=== PATIENT | female | born 1940 | race Caucasian/White ===

== ENCOUNTER 2016-11-16 17:11 | Inpatient (IN) | payer MEDICARE, OTHER ==
[~2016-11-16 17:11] MED LIST: ALLOPURINOL300 MG PO; ASPIR 8181 MG PO; ATENOLOL50 MG PO; CLARITIN-D 241 EAC1 PO; D3 DOTS2000 UNIT PO; LACRI-LUBE S.O3.5 G1 OP; LUTEIN20 M1 PO; MAGOX 400400 MG PO; MAXZIDE1 TA2 PO; MEDROL4 MG/DOSE- PO; MULTI VITAMIN1 EACH PO; NORVASC5 MG PO; VALTREX1000 MG PO; [UNRECOGNIZED DRUG - OTHER] PO
[2016-11-16] MEDS ORDERED: GLUCOSAMINE CH1 EAC8 PO (17:20)
[2016-11-16] MEDS ORDERED: AUSTRALIAN DREAM TOP (17:20)
[2016-11-16] MEDS ORDERED: NORCO 5-325 TA1 EACH PO (17:21)
[2016-11-16] MEDS ORDERED: COLACE100 M1 PO (17:21)
[2016-11-16] MEDS ORDERED: ASPIRIN EC81 MG PO (17:22)
[2016-11-16] MEDS ORDERED: ZYLOPRIM300 M1 PO (17:22)
[2016-11-16] MEDS ORDERED: LUTEIN20 M2 PO (17:23)
[2016-11-16] MEDS ORDERED: BIOTIN5 M3 PO (17:23)
[2016-11-16] MEDS ORDERED: MULTIVITAMINS1 EAC6 PO (17:23)
[2016-11-16] MEDS ORDERED: NORVASC5 M2 PO (17:24)
[2016-11-16] MEDS ORDERED: MAGNESIUM OXID400 M1 PO (17:24)
[2016-11-16] MEDS ORDERED: MAXZIDE 37.5 M1 EAC1 PO (17:24)
[2016-11-16] MEDS ORDERED: CLARITIN10 M6 PO (17:24)
[2016-11-16] MEDS ORDERED: TENORMIN50 M1 PO (17:24)
[2016-11-16] MEDS ORDERED: VITAMIN D35000 UNI3 PO (17:26)
[2016-11-16] MEDS ORDERED: MACROBID 100 M100 M1 PO (17:33)
[2016-11-16 18:06] LABS: BASO % 0.1 % (0-2); EOS % 1.2 % (0-7); EOSINOPHIL ABSOLUTE COUNT 0.1 tho/cmm (0.0-0.7); HGB-HEMOGLOBIN 12.3 gm/dl (12.0-15.5); IMMATURE GRANULOCYTES ABSOLUTE 0.02 tho/cmm (0-0.03); IMMATURE GRANULOCYTES PERCENT 0.2 % (0-0.3); LYMPH % 9.7 % (20-45); LYMPH ABSOLUTE COUNT 0.8 tho/cmm (0.8-4.5); MCHC MEAN CORPUSCULAR HGB CONC 34.2 % (32.0-36.0); MCV (MEAN CELL VOLUME) 93.8 fl (82.0-96.0); MEAN PLATELET VOLUME 11.4 cmc (9.4-12.4); MONO % 1.4 % (0-12); MONOCYTE ABSOLUTE COUNT 0.1 tho/cmm (0.0-1.2); NEUTROPHIL ABSOLUTE COUNT 7.2 tho/cmm (1.6-8.0); NEUTROPHIL-AUTOMATED 7.2 tho/cmm (1.6-8.0); NEUTROPHILS % 87.4 % (40-80); PLATELET COUNT 143 tho/cmm (150-450); RED BLOOD COUNT 3.84 mil/cmm (4.00-5.20); RED CELL DISTRIBUTION WIDTH 15.1 % (12.4-16.4); WHITE BLOOD COUNT 8.3 tho/cmm (4.0-10.0)
[2016-11-16 18:29] LABS: ALB/GLOB RATIO 0.9 (0.8-2.0); ALBUMIN 2.7 g/dl (3.5-5.0); ALKALINE PHOSPHATASE 145 U/L (33-138); ALT/SGPT 239 U/L (12-78); BILIRUBIN,TOTAL 0.9 mg/dl (0-1.5); BLOOD UREA NITROGEN 76 mg/dl (6-24); CALCIUM 7.9 mg/dl (8.5-10.5); CARBON DIOXIDE-VENOUS 23 mmol/L (22-32); CHLORIDE 103 mmol/l (96-110); GLUCOSE 94 mg/dL (70-110); SODIUM 139 mmol/L (135-145); eGFR VALUE FOR BLACK 9 mL/Min
[2016-11-16 18:42] LABS: ANION GAP 17 mmol/L (0-20); AST/SGOT 97 U/L (10-40); POTASSIUM 4.3 mmol/L (3.7-5.1)
[2016-11-16 18:46] LABS: URINE BILIRUBIN SMALL (NEG); URINE BLOOD MODERATE (NEG); URINE GLUCOSE (UA) NEGATIVE (NEG); URINE KETONE NEGATIVE (NEG); URINE LEUKOCYTE ESTERASE POSITIVE (NEG); URINE NITRITE NEGATIVE (NEG); URINE PROTEIN MODERATE (NEG)
[2016-11-16 18:48] LABS: URINE APPEARANCE CLOUDY; URINE COLOR YELLOW
[2016-11-16 18:55] LABS: URINE BACTERIA 1+; URINE RBC RARE /[HPF] (0-5)
[2016-11-16 18:56] LABS: URINE AMORPHOUS 1+
[2016-11-16 20:24] LABS: CREATINE PHOSPHOKINASE (CPK) 196 U/L (21-215)
[2016-11-16 22:39] LABS: PROTHROMBIN TIME 12.1 SECONDS (9.0-13.6)
[2016-11-16 22:54] LABS: PROCALCITONIN 25.75 ng/ml (0.05-0.09)
[2016-11-16 23:58] LABS: ANION GAP 17 mmol/L (0-20); BLOOD UREA NITROGEN 80 mg/dl (6-24); CARBON DIOXIDE-VENOUS 23 mmol/L (22-32); CHLORIDE 104 mmol/l (96-110); GLUCOSE 90 mg/dL (70-110); POTASSIUM 3.7 mmol/L (3.7-5.1); SODIUM 140 mmol/L (135-145); eGFR VALUE FOR BLACK 10 mL/Min
[2016-11-17 02:36] LABS: BASO % 0.1 % (0-2); EOS % 2.7 % (0-7); EOSINOPHIL ABSOLUTE COUNT 0.2 tho/cmm (0.0-0.7); HCT-HEMATOCRIT 33.7 % (34.0-49.0); HGB-HEMOGLOBIN 11.5 gm/dl (12.0-15.5); IMMATURE GRANULOCYTES ABSOLUTE 0.01 tho/cmm (0-0.03); IMMATURE GRANULOCYTES PERCENT 0.1 % (0-0.3); LYMPH % 18.7 % (20-45); LYMPH ABSOLUTE COUNT 1.7 tho/cmm (0.8-4.5); MCH (MEAN CORPUSCULAR HGB) 31.7 pg (28.0-32.0); MCHC MEAN CORPUSCULAR HGB CONC 34.1 % (32.0-36.0); MCV (MEAN CELL VOLUME) 92.8 fl (82.0-96.0); MEAN PLATELET VOLUME 11.8 cmc (9.4-12.4); MONO % 2.5 % (0-12); MONOCYTE ABSOLUTE COUNT 0.2 tho/cmm (0.0-1.2); NEUTROPHIL ABSOLUTE COUNT 6.9 tho/cmm (1.6-8.0); NEUTROPHIL-AUTOMATED 6.9 tho/cmm (1.6-8.0); NEUTROPHILS % 75.9 % (40-80); PLATELET COUNT 147 tho/cmm (150-450); RED BLOOD COUNT 3.63 mil/cmm (4.00-5.20); RED CELL DISTRIBUTION WIDTH 14.9 % (12.4-16.4)
[2016-11-17 03:36] LABS: ALB/GLOB RATIO 0.8 (0.8-2.0); ALBUMIN 2.3 g/dl (3.5-5.0); ALKALINE PHOSPHATASE 118 U/L (33-138); ALT/SGPT 183 U/L (12-78); ANION GAP 18 mmol/L (0-20); AST/SGOT 61 U/L (10-40); BILIRUBIN,TOTAL 0.9 mg/dl (0-1.5); BLOOD UREA NITROGEN 80 mg/dl (6-24); CALCIUM 7.4 mg/dl (8.5-10.5); CARBON DIOXIDE-VENOUS 20 mmol/L (22-32); CHLORIDE 106 mmol/l (96-110); CREATININE 4.83 mg/dl (0.50-1.10); GLUCOSE 80 mg/dL (70-110); MAGNESIUM 2.8 mg/dl (1.8-2.6); PHOSPHOROUS 5.1 mg/dl (2.5-4.9); POTASSIUM 3.5 mmol/L (3.7-5.1); SODIUM 140 mmol/L (135-145); eGFR VALUE FOR BLACK 9 mL/Min
[2016-11-17 10:46] LABS: URINE CREATININE-RANDOM 47 mg/dl (30-125); URINE SODIUM-RANDOM 81 mmol/L (20-110)
[2016-11-18 05:01] LABS: BASO % 0.5 % (0-2); EOS % 4.8 % (0-7); EOSINOPHIL ABSOLUTE COUNT 0.4 tho/cmm (0.0-0.7); HCT-HEMATOCRIT 33.1 % (34.0-49.0); HGB-HEMOGLOBIN 11.1 gm/dl (12.0-15.5); IMMATURE GRANULOCYTES ABSOLUTE 0.02 tho/cmm (0-0.03); IMMATURE GRANULOCYTES PERCENT 0.3 % (0-0.3); LYMPH % 28.6 % (20-45); LYMPH ABSOLUTE COUNT 2.1 tho/cmm (0.8-4.5); MCH (MEAN CORPUSCULAR HGB) 31.4 pg (28.0-32.0); MCHC MEAN CORPUSCULAR HGB CONC 33.5 % (32.0-36.0); MCV (MEAN CELL VOLUME) 93.8 fl (82.0-96.0); MEAN PLATELET VOLUME 11.4 cmc (9.4-12.4); MONO % 4.6 % (0-12); MONOCYTE ABSOLUTE COUNT 0.3 tho/cmm (0.0-1.2); NEUTROPHIL ABSOLUTE COUNT 4.5 tho/cmm (1.6-8.0); NEUTROPHIL-AUTOMATED 4.5 tho/cmm (1.6-8.0); NEUTROPHILS % 61.2 % (40-80); PLATELET COUNT 141 tho/cmm (150-450); RED BLOOD COUNT 3.53 mil/cmm (4.00-5.20); RED CELL DISTRIBUTION WIDTH 15.4 % (12.4-16.4); WHITE BLOOD COUNT 7.3 tho/cmm (4.0-10.0)
[2016-11-18 05:09] LABS: ALBUMIN 2.1 g/dl (3.5-5.0); ANION GAP 16 mmol/L (0-20); BLOOD UREA NITROGEN 80 mg/dl (6-24); CALCIUM 7.5 mg/dl (8.5-10.5); CARBON DIOXIDE-VENOUS 19 mmol/L (22-32); CHLORIDE 112 mmol/l (96-110); CREATININE 4.51 mg/dl (0.50-1.10); GLUCOSE 84 mg/dL (70-110); PHOSPHOROUS 4.4 mg/dl (2.5-4.9); POTASSIUM 3.7 mmol/L (3.7-5.1); SODIUM 143 mmol/L (135-145); eGFR VALUE FOR BLACK 10 mL/Min
[2016-11-18 05:57] LABS: PROCALCITONIN 8.43 ng/ml (0.05-0.09)
[2016-11-19 05:19] LABS: BASO % 0.3 % (0-2); EOS % 3.3 % (0-7); EOSINOPHIL ABSOLUTE COUNT 0.2 tho/cmm (0.0-0.7); HCT-HEMATOCRIT 25.7 % (34.0-49.0); HGB-HEMOGLOBIN 8.9 gm/dl (12.0-15.5); IMMATURE GRANULOCYTES ABSOLUTE 0.02 tho/cmm (0-0.03); IMMATURE GRANULOCYTES PERCENT 0.3 % (0-0.3); LYMPH % 38.7 % (20-45); LYMPH ABSOLUTE COUNT 2.8 tho/cmm (0.8-4.5); MCHC MEAN CORPUSCULAR HGB CONC 34.6 % (32.0-36.0); MEAN PLATELET VOLUME 11.1 cmc (9.4-12.4); MONOCYTE ABSOLUTE COUNT 0.5 tho/cmm (0.0-1.2); NEUTROPHIL ABSOLUTE COUNT 3.6 tho/cmm (1.6-8.0); NEUTROPHIL-AUTOMATED 3.6 tho/cmm (1.6-8.0); NEUTROPHILS % 50.4 % (40-80); PLATELET COUNT 84 tho/cmm (150-450); RED BLOOD COUNT 2.97 mil/cmm (4.00-5.20); RED CELL DISTRIBUTION WIDTH 17.5 % (12.4-16.4); WHITE BLOOD COUNT 7.2 tho/cmm (4.0-10.0)
[2016-11-19 05:21] LABS: INR 1.1 INR (0.9-1.1); PROTHROMBIN TIME 12.8 SECONDS (9.0-13.6)
[2016-11-19 05:32] LABS: MCV (MEAN CELL VOLUME) 86.5 fl (82.0-96.0)
[2016-11-19 05:36] LABS: ALBUMIN 1.8 g/dl (3.5-5.0); ANION GAP 16 mmol/L (0-20); AST/SGOT 22 U/L (10-40); BLOOD UREA NITROGEN 71 mg/dl (6-24); CALCIUM 7.5 mg/dl (8.5-10.5); CARBON DIOXIDE-VENOUS 18 mmol/L (22-32); CHLORIDE 115 mmol/l (96-110); CREATININE 3.41 mg/dl (0.50-1.10); GLUCOSE 88 mg/dL (70-110); PHOSPHOROUS 5.1 mg/dl (2.5-4.9); POTASSIUM 4.2 mmol/L (3.7-5.1); SODIUM 145 mmol/L (135-145); eGFR VALUE FOR BLACK 14 mL/Min
[2016-11-19 05:38] LABS: ALB/GLOB RATIO 0.8 (0.8-2.0); ALKALINE PHOSPHATASE 55 U/L (33-138); ALT/SGPT 67 U/L (12-78); BILIRUBIN,TOTAL 0.7 mg/dl (0-1.5)
[2016-11-20 05:57] LABS: BASO % 0.2 % (0-2); EOS % 5.8 % (0-7); EOSINOPHIL ABSOLUTE COUNT 0.5 tho/cmm (0.0-0.7); HCT-HEMATOCRIT 24.3 % (34.0-49.0); HGB-HEMOGLOBIN 8.4 gm/dl (12.0-15.5); IMMATURE GRANULOCYTES ABSOLUTE 0.05 tho/cmm (0-0.03); IMMATURE GRANULOCYTES PERCENT 0.6 % (0-0.3); LYMPH % 35.9 % (20-45); LYMPH ABSOLUTE COUNT 2.9 tho/cmm (0.8-4.5); MCH (MEAN CORPUSCULAR HGB) 29.4 pg (28.0-32.0); MCHC MEAN CORPUSCULAR HGB CONC 34.6 % (32.0-36.0); MEAN PLATELET VOLUME 10.5 cmc (9.4-12.4); MONO % 7.8 % (0-12); MONOCYTE ABSOLUTE COUNT 0.6 tho/cmm (0.0-1.2); NEUTROPHILS % 49.7 % (40-80); PLATELET COUNT 96 tho/cmm (150-450); RED BLOOD COUNT 2.86 mil/cmm (4.00-5.20); RED CELL DISTRIBUTION WIDTH 18.1 % (12.4-16.4); WHITE BLOOD COUNT 8.1 tho/cmm (4.0-10.0)
[2016-11-20 06:57] LABS: PROTHROMBIN TIME 11.9 SECONDS (9.0-13.6)
[2016-11-20 07:06] LABS: ALB/GLOB RATIO 0.8 (0.8-2.0); ALBUMIN 1.9 g/dl (3.5-5.0); ALKALINE PHOSPHATASE 55 U/L (33-138); ALT/SGPT 57 U/L (12-78); AST/SGOT 25 U/L (10-40); BILIRUBIN,TOTAL 0.5 mg/dl (0-1.5); BLOOD UREA NITROGEN 53 mg/dl (6-24); CALCIUM 7.7 mg/dl (8.5-10.5); CARBON DIOXIDE-VENOUS 22 mmol/L (22-32); CHLORIDE 117 mmol/l (96-110); GLUCOSE 97 mg/dL (70-110); PHOSPHOROUS 3.2 mg/dl (2.5-4.9); SODIUM 149 mmol/L (135-145); eGFR VALUE FOR BLACK 23 mL/Min
[2016-11-20 07:08] LABS: ANION GAP 13 mmol/L (0-20); CREATININE 2.32 mg/dl (0.50-1.10); POTASSIUM 3.3 mmol/L (3.7-5.1)
[2016-11-20 21:54] LABS: HGB-HEMOGLOBIN 8.6 gm/dl (12.0-15.5); MCV (MEAN CELL VOLUME) 86.5 fl (82.0-96.0); RED CELL DISTRIBUTION WIDTH 17.7 % (12.4-16.4)
[2016-11-21 03:43] LABS: BASO % 0.2 % (0-2); EOS % 4.3 % (0-7); EOSINOPHIL ABSOLUTE COUNT 0.4 tho/cmm (0.0-0.7); HGB-HEMOGLOBIN 8.1 gm/dl (12.0-15.5); IMMATURE GRANULOCYTES ABSOLUTE 0.06 tho/cmm (0-0.03); IMMATURE GRANULOCYTES PERCENT 0.7 % (0-0.3); LYMPH % 36.1 % (20-45); LYMPH ABSOLUTE COUNT 3.3 tho/cmm (0.8-4.5); MCH (MEAN CORPUSCULAR HGB) 29.3 pg (28.0-32.0); MCV (MEAN CELL VOLUME) 86.2 fl (82.0-96.0); MEAN PLATELET VOLUME 10.7 cmc (9.4-12.4); MONO % 7.3 % (0-12); MONOCYTE ABSOLUTE COUNT 0.7 tho/cmm (0.0-1.2); NEUTROPHIL ABSOLUTE COUNT 4.7 tho/cmm (1.6-8.0); NEUTROPHIL-AUTOMATED 4.7 tho/cmm (1.6-8.0); NEUTROPHILS % 51.4 % (40-80); PLATELET COUNT 126 tho/cmm (150-450); RED BLOOD COUNT 2.76 mil/cmm (4.00-5.20); RED CELL DISTRIBUTION WIDTH 17.7 % (12.4-16.4); WHITE BLOOD COUNT 9.1 tho/cmm (4.0-10.0)
[2016-11-21 03:44] LABS: HCT-HEMATOCRIT 23.8 % (34.0-49.0)
[2016-11-21 03:54] LABS: ALBUMIN 2.1 g/dl (3.5-5.0); ANION GAP 12 mmol/L (0-20); BLOOD UREA NITROGEN 33 mg/dl (6-24); CALCIUM 7.8 mg/dl (8.5-10.5); CARBON DIOXIDE-VENOUS 24 mmol/L (22-32); CHLORIDE 115 mmol/l (96-110); GLUCOSE 102 mg/dL (70-110); MAGNESIUM 1.6 mg/dl (1.8-2.6); PHOSPHOROUS 2.6 mg/dl (2.5-4.9); POTASSIUM 3.4 mmol/L (3.7-5.1); SODIUM 148 mmol/L (135-145); eGFR VALUE FOR BLACK 35 mL/Min
[2016-11-21 03:55] LABS: CREATININE 1.62 mg/dl (0.50-1.10)
[2016-11-21 16:24] LABS: HCT-HEMATOCRIT 25.2 % (34.0-49.0); HGB-HEMOGLOBIN 8.4 gm/dl (12.0-15.5); MCV (MEAN CELL VOLUME) 86.3 fl (82.0-96.0); RED CELL DISTRIBUTION WIDTH 17.8 % (12.4-16.4)
[2016-11-21 22:00] LABS: HCT-HEMATOCRIT 27.6 % (34.0-49.0); HGB-HEMOGLOBIN 9.3 gm/dl (12.0-15.5); MCV (MEAN CELL VOLUME) 86.5 fl (82.0-96.0)
[2016-11-22 05:59] LABS: HGB-HEMOGLOBIN 7.9 gm/dl (12.0-15.5); MCV (MEAN CELL VOLUME) 87.2 fl (82.0-96.0); RED CELL DISTRIBUTION WIDTH 18.1 % (12.4-16.4)
[2016-11-22 06:01] LABS: HGB-HEMOGLOBIN 7.9 gm/dl (12.0-15.5); PLATELET COUNT 131 tho/cmm (150-450)
[2016-11-22 06:04] LABS: HCT-HEMATOCRIT 23.9 % (34.0-49.0)
[2016-11-22 06:15] LABS: ANION GAP 12 mmol/L (0-20); BLOOD UREA NITROGEN 20 mg/dl (6-24); CALCIUM 7.8 mg/dl (8.5-10.5); CARBON DIOXIDE-VENOUS 23 mmol/L (22-32); CHLORIDE 114 mmol/l (96-110); CREATININE 1.22 mg/dl (0.50-1.10); GLUCOSE 92 mg/dL (70-110); MAGNESIUM 1.8 mg/dl (1.8-2.6); PHOSPHOROUS 2.7 mg/dl (2.5-4.9); SODIUM 145 mmol/L (135-145); eGFR VALUE FOR BLACK 50 mL/Min
[2016-11-22 17:51] LABS: HCT-HEMATOCRIT 31.2 % (34.0-49.0); HGB-HEMOGLOBIN 10.5 gm/dl (12.0-15.5)
[2016-11-23 05:11] LABS: HCT-HEMATOCRIT 31.8 % (34.0-49.0); HGB-HEMOGLOBIN 10.5 gm/dl (12.0-15.5); MCV (MEAN CELL VOLUME) 86.9 fl (82.0-96.0); RED CELL DISTRIBUTION WIDTH 17.4 % (12.4-16.4)
[2016-11-23 05:35] LABS: ANION GAP 11 mmol/L (0-20); BLOOD UREA NITROGEN 16 mg/dl (6-24); CALCIUM 8.1 mg/dl (8.5-10.5); CARBON DIOXIDE-VENOUS 24 mmol/L (22-32); CHLORIDE 113 mmol/l (96-110); CREATININE 1.23 mg/dl (0.50-1.10); GLUCOSE 83 mg/dL (70-110); PHOSPHOROUS 3.1 mg/dl (2.5-4.9); POTASSIUM 4.2 mmol/L (3.7-5.1); SODIUM 144 mmol/L (135-145); eGFR VALUE FOR BLACK 49 mL/Min
[2016-11-24 03:38] LABS: BASO % 0.5 % (0-2); EOS % 4.4 % (0-7); EOSINOPHIL ABSOLUTE COUNT 0.3 tho/cmm (0.0-0.7); HCT-HEMATOCRIT 29.8 % (34.0-49.0); HGB-HEMOGLOBIN 9.7 gm/dl (12.0-15.5); IMMATURE GRANULOCYTES ABSOLUTE 0.04 tho/cmm (0-0.03); IMMATURE GRANULOCYTES PERCENT 0.5 % (0-0.3); LYMPH % 30.3 % (20-45); LYMPH ABSOLUTE COUNT 2.4 tho/cmm (0.8-4.5); MCH (MEAN CORPUSCULAR HGB) 28.6 pg (28.0-32.0); MCHC MEAN CORPUSCULAR HGB CONC 32.6 % (32.0-36.0); MCV (MEAN CELL VOLUME) 87.9 fl (82.0-96.0); MEAN PLATELET VOLUME 10.5 cmc (9.4-12.4); MONO % 9.4 % (0-12); MONOCYTE ABSOLUTE COUNT 0.7 tho/cmm (0.0-1.2); NEUTROPHIL ABSOLUTE COUNT 4.3 tho/cmm (1.6-8.0); NEUTROPHIL-AUTOMATED 4.3 tho/cmm (1.6-8.0); NEUTROPHILS % 54.9 % (40-80); RED BLOOD COUNT 3.39 mil/cmm (4.00-5.20); RED CELL DISTRIBUTION WIDTH 17.2 % (12.4-16.4); WHITE BLOOD COUNT 7.8 tho/cmm (4.0-10.0)
[2016-11-24 03:39] LABS: PLATELET COUNT 209 tho/cmm (150-450)
[2016-11-24 03:48] LABS: ANION GAP 11 mmol/L (0-20); BLOOD UREA NITROGEN 18 mg/dl (6-24); CALCIUM 7.9 mg/dl (8.5-10.5); CARBON DIOXIDE-VENOUS 24 mmol/L (22-32); CHLORIDE 112 mmol/l (96-110); CREATININE 1.27 mg/dl (0.50-1.10); GLUCOSE 77 mg/dL (70-110); POTASSIUM 4.2 mmol/L (3.7-5.1); SODIUM 143 mmol/L (135-145); eGFR VALUE FOR BLACK 47 mL/Min
[2016-11-25 05:28] LABS: BASO % 0.6 % (0-2); EOS % 3.1 % (0-7); EOSINOPHIL ABSOLUTE COUNT 0.2 tho/cmm (0.0-0.7); HCT-HEMATOCRIT 29.6 % (34.0-49.0); HGB-HEMOGLOBIN 9.2 gm/dl (12.0-15.5); LYMPH % 31.2 % (20-45); LYMPH ABSOLUTE COUNT 2.2 tho/cmm (0.8-4.5); MCH (MEAN CORPUSCULAR HGB) 28.2 pg (28.0-32.0); MCHC MEAN CORPUSCULAR HGB CONC 31.1 % (32.0-36.0); MCV (MEAN CELL VOLUME) 90.8 fl (82.0-96.0); MEAN PLATELET VOLUME 10.9 cmc (9.4-12.4); MONO % 10.3 % (0-12); MONOCYTE ABSOLUTE COUNT 0.7 tho/cmm (0.0-1.2); NEUTROPHIL ABSOLUTE COUNT 3.9 tho/cmm (1.6-8.0); NEUTROPHIL-AUTOMATED 3.9 tho/cmm (1.6-8.0); NEUTROPHILS % 54.8 % (40-80); PLATELET COUNT 244 tho/cmm (150-450); RED BLOOD COUNT 3.26 mil/cmm (4.00-5.20); RED CELL DISTRIBUTION WIDTH 16.9 % (12.4-16.4); WHITE BLOOD COUNT 7.2 tho/cmm (4.0-10.0)
[2016-11-25 05:53] LABS: ANION GAP 11 mmol/L (0-20); BLOOD UREA NITROGEN 16 mg/dl (6-24); CALCIUM 7.9 mg/dl (8.5-10.5); CARBON DIOXIDE-VENOUS 25 mmol/L (22-32); CHLORIDE 115 mmol/l (96-110); CREATININE 1.21 mg/dl (0.50-1.10); GLUCOSE 78 mg/dL (70-110); POTASSIUM 3.8 mmol/L (3.7-5.1); SODIUM 147 mmol/L (135-145); eGFR VALUE FOR BLACK 50 mL/Min
[2016-11-25] MEDS ORDERED: FLECAINIDE ACE100 M1 PO (10:49)
[2016-11-25] MEDS ORDERED: METOPROLOL TART25 M1 PO (10:50)
[2016-11-25] MEDS ORDERED: TYLENOL325 M2 PO (10:51)
[2016-11-25] MEDS ORDERED: PROTONIX40 M2 PO (10:52)
== END 2016-11-25 14:00 | DRG 871 ==
LOC: EDMED 17:11 → EMR2 19:50 → CCU 21:20 → PCUA 11-22 17:55
PROVIDERS: Emergency Medicine; Family Medicine; Internal Medicine; Internal Medicine Cardiovascular Disease; Internal Medicine Gastroenterology; Internal Medicine Nephrology; Nurse Practitioner; ADMIT Hospitalist
PROC: 30233N1 Transfusion of Nonautologous Red Blood Cells into Peripheral Vein, Percutaneous Approach (ICD-10-PCS; 2016-11-18)
PROC: 02HV33Z Insertion of Infusion Device into Superior Vena Cava, Percutaneous Approach (ICD-10-PCS; 2016-11-18)
PROC: 0DB98ZX Excision of Duodenum, Via Natural or Artificial Opening Endoscopic, Diagnostic (ICD-10-PCS; principal; 2016-11-19)
PROC: 0W3P8ZZ Control Bleeding in Gastrointestinal Tract, Via Natural or Artificial Opening Endoscopic (ICD-10-PCS; principal; 2016-11-19)
PROC: 3E0G8GC Introduction of Other Therapeutic Substance into Upper GI, Via Natural or Artificial Opening Endoscopic (ICD-10-PCS; principal; 2016-11-19)
PROC: 0DB68ZX Excision of Stomach, Via Natural or Artificial Opening Endoscopic, Diagnostic (ICD-10-PCS; principal; 2016-11-19)
PROC: 0W3P8ZZ Control Bleeding in Gastrointestinal Tract, Via Natural or Artificial Opening Endoscopic (ICD-10-PCS; 2016-11-21)
PROC: 5A2204Z Restoration of Cardiac Rhythm, Single (ICD-10-PCS; 2016-11-23)
DX: A41.9 Sepsis, unspecified organism (principal); K25.4 Chronic or unspecified gastric ulcer with hemorrhage; R65.21 Severe sepsis with septic shock; N18.4 Chronic kidney disease, stage 4 (severe); E87.0 Hyperosmolality and hypernatremia; N17.9 Acute kidney failure, unspecified; D69.6 Thrombocytopenia, unspecified; I48.92 Unspecified atrial flutter; D62 Acute posthemorrhagic anemia; E86.0 Dehydration; I48.91 Unspecified atrial fibrillation; K26.4 Chronic or unspecified duodenal ulcer with hemorrhage; E87.1 Hypo-osmolality and hyponatremia; I12.9 Hypertensive chronic kidney disease with stage 1 through stage 4 chronic kidney disease, or unspecified chronic kidney disease; M10.9 Gout, unspecified; K57.10 Diverticulosis of small intestine without perforation or abscess without bleeding; K44.9 Diaphragmatic hernia without obstruction or gangrene; E87.6 Hypokalemia; K80.80 Other cholelithiasis without obstruction; Z87.891 Personal history of nicotine dependence; Z88.5 Allergy status to narcotic agent; M17.0 Bilateral primary osteoarthritis of knee; Z88.2 Allergy status to sulfonamides; Z79.82 Long term (current) use of aspirin; Z79.899 Other long term (current) drug therapy; Z66 Do not resuscitate
CPT/HCPCS: A9560; C1751; C9113; J0171; J1650; J2543; J3370; J3475; J3480; J7030; J7040; P9016; P9612